=== PATIENT | female | born 1955 | race Caucasian/White ===

== ENCOUNTER 2017-01-31 19:58 | Emergency (ER) | payer OTHER ==
[2017-01-31] MEDS ORDERED: HYDROcodone/Acetaminophen 10/325 mg Tablet ONE (21:37)
--- NOTE | 2017-01-31 23:03 | RAD ---
LEFT ELBOW: History: Fall with elbow pain. FINDINGS: There is soft tissue swelling in the region of the olecranon. There is no fracture or joint effusion . IMPRESSION: No evidence of fracture. POS: [facility]
--- NOTE | 2017-01-31 23:07 | RAD ---
LEFT KNEE FOUR VIEWS: History: Fall with knee pain. FINDINGS: Bones are demineralized. There are some arthritic changes of the knee with medial compartment narrow ing. There are no signs of fracture, dislocation, or joint effusion. IMPRESSION: No evidence of fracture. POS: [facility]
--- NOTE | 2017-01-31 23:10 | RAD ---
PORTABLE CHEST: History: Fall with left sided pain. FINDINGS: Heart size is borderline. There are post op sternotomy change. There is elevation of the right hemid iaphragm. The lungs are clear of infiltrates. No rib fractures identified. IMPRESSION: Borderline heart size. POS: [facility]
--- NOTE | 2017-01-31 23:15 | RAD ---
RIGHT HAND THREE VIEWS: History: Fall with hand pain. FINDINGS: The bones appear demineralized. There are arthritic changes of the hand. The trapezium is absent, pr esumably surgically removed. There is no signs of any acute trauma. IMPRESSION: No evidence of fracture. POS: [facility]
--- NOTE | 2017-01-31 23:16 | RAD ---
RIGHT WRIST THREE VIEWS: History: Fall while walking. FINDINGS: The trapezium is absent, presumably post-operative. I do not see any signs of fracture or dislocatio n. The bones are demineralized. If trauma is suspected to the navicular, a follow up is recommended to exclude occult fracture. IMPRESSION: No evidence of fracture. POS: [facility]
[2017-01-31] MEDS ORDERED: Morphine 10 MG/ML VIAL ONE (23:34)
== END 2017-01-31 23:49 | disposition home or self-care (01) ==
LOC: ERS 19:58
DX: S50.02XA Contusion of left elbow, initial encounter (principal); S63.501A Unspecified sprain of right wrist, initial encounter; I25.10 Atherosclerotic heart disease of native coronary artery without angina pectoris; F41.9 Anxiety disorder, unspecified; F32.9 Major depressive disorder, single episode, unspecified; Z86.711 Personal history of pulmonary embolism; W17.89XA Other fall from one level to another, initial encounter; Y93.02 Activity, running
CPT/HCPCS: 71010; 96372; J2270

== ENCOUNTER 2017-04-22 08:27 | Outpatient (CLI) | payer OTHER ==
--- NOTE | 2017-04-22 10:33 | CT ---
CERVICAL SPINE CT WITHOUT CONTRAST: DATE: 04/22/17. COMPARISON: 10/01/16. HISTORY: Possible nerve impingement, cervical radiculopathy. TECHNIQUE: Serial axial CT imaging at 2 mm intervals obtained from the skull base through the upper thoracic spi ne without contrast. Coronal and sagittal reformatted imaging obtained. FINDINGS: Imaged lung apices are unremarkable. Partially visualized midline sternotomy wires noted. The C1 ring is intact. There is mild degenerative change at the atlantoaxial interspace. The cranio cervical junction, occipital condyles, dens, and C1-2 articulation appear grossly unremarkable. The cervicothoracic junction appears within normal limits. Evaluation for central anal and/or neural foraminal stenosis is limited on routine CT. There is ante rior diskectomy and fusion hardware at C6-7, similar when compared to the prior examination. C2-3: No osseous cause of significant central canal or neural foraminal stenosis. C3-4: Mild left-sided uncovertebral osteophyte formation with probable mild left neural foraminal st enosis. No osseous cause of significant central canal or right neural foraminal stenosis. C4-5: No osseous cause of significant central canal or neural foraminal stenosis. C5-6: There is moderate uncovertebral osteophyte formation on the left with a moderate degree of lef t neural foraminal stenosis. There is mild right neural foraminal stenosis with probable mild right neural foraminal stenosis. No osseous cause of significant central canal stenosis. C6-7: There is no osseous cause of significant central canal or neural foraminal stenosis. C7-T1: No osseous cause of significant central canal or neural foraminal stenosis. Soft tissue windows suggest a central disk herniation abutting the ventral aspect of the cervical cor d at C3-4, slightly more conspicuous than on the prior exam. No acute osseous abnormality. No worri some lytic or blastic bone lesion. IMPRESSION: Degenerative change within the cervical spine as detailed above. More detailed assessment for centra l canal and/or neural foraminal stenosis could be performed via MRI or cervical spine CT myelogram as clinically warranted. POS: [facility]
== END 2017-04-22 08:28 | disposition home or self-care (01) ==
LOC: TBSIIMAG 08:27
PROVIDERS: ATTEND Neurological Surgery
DX: M47.22 Other spondylosis with radiculopathy, cervical region (principal)
CPT/HCPCS: 72125

== ENCOUNTER 2017-09-08 17:57 | Emergency (ER) | payer OTHER, SELFPAY ==
[~2017-09-08 17:57] MED LIST: ISOVUE-370 76%-LOCM 1 ML ONE
[2017-09-08 19:34] LABS: #Basophils 0.1 thou/uL (0.0-0.2); #Eosinphils 0.2 thou/uL (0.0-0.7); #Lymphocytes 1.5 thou/uL (1.20-3.40); #Monocytes 0.4 thou/uL (0.11-0.59); #Neutrophils 3.5 thou/uL (1.40-6.50); %Basophils 0.9 % (0.0-1.0); %Eosinophils 3.5 % (0.0-10.0); %Neutrophils 62.6 % (42.0-75.0); Mean Corpuscular HGB CONC 34.9 g/dL (32.0-36.0); Mean Corpuscular Hemoglobin 32.2 pg (27.0-31.0); Mean Corpuscular Volume 92.2 fl (81.0-99.0); Mean Platelet Volume 6.2 fL (7.4-10.4); Platelet Count 180 thou/uL (130-400); RBC Distribution Width 12.2 % (11.5-14.5); Red Blood Cell (RBC) Count 4.03 mill/uL (4.20-5.40); White Blood Cell (WBC) Count 5.6 thou/uL (4.8-10.8)
[2017-09-08 19:59] LABS: ALT (SGPT) 31 U/L (8-55); AST (SGOT) 25 U/L (5-34); Albumin 4.2 g/dL (3.5-5.0); Alkaline Phosphatase 105 U/L (40-150); Anion Gap 9 mmol/L (10-20); BUN (Urea Nitrogen) 17 mg/dL (9.8-20.1); Bilirubin, Total 0.5 mg/dL (0.2-1.2); Calc. Creatinine Clearance 0 mL/min (70-130); Calcium 9.3 mg/dL (7.8-10.44); Carbon Dioxide 24 mmol/L (22-29); Chloride 107 mmol/L (98-107); Estimated GFR-MDRD 52; Globulin 2.7 g/dL (2.4-3.5); Glucose 96 mg/dL (70-105); Lipase 5 U/L (8-78); Potassium 3.7 mmol/L (3.5-5.1); Protein, Total 6.9 g/dL (6.0-8.3); Sodium 136 mmol/L (136-145)
[2017-09-08 20:30] LABS: INR-International Normal Ratio 1.2; PTT 29.5 SEC (22.9-36.1); Prothrombin Time 15.5 SEC (12.0-14.7)
--- NOTE | 2017-09-08 20:34 | CT ---
CT OF THE BRAIN WITHOUT CONTRAST 09/08/17 COMPARISON: 09/22/16. HISTORY: Tripped while walking dog and fell on the concrete and struck the head. Head trauma and headache. TECHNIQUE: Multiple contiguous axial images were obtained in a CT of the brain without contrast. FINDINGS: There are a few subtle scattered hypodensities in the subcortical and periventricular white matter l ikely secondary to small vessel ischemic disease. No large confluent infarction is seen. There is no evidence of hydrocephalus, intracranial hemorrhage or extra-axial fluid collection. The calvarium and overlying soft tissues are unremarkable. The visualized paranasal sinuses and masto id air cells are well aerated. IMPRESSION: No evidence of acute intracranial abnormality. POS: [facility]
--- NOTE | 2017-09-08 20:38 | CT ---
CT OF THE CERVICAL SPINE WITHOUT CONTRAST 09/08/17 COMPARISON: None. HISTORY: Tripped and fell walking dog and hit head. Patient complains of neck pain and pain all over. TECHNIQUE: Multiple contiguous axial images were obtained in a CT of the cervical spine without contrast. Sagitt al and coronal reformats were performed. FINDINGS: The patient is status post anterior fusion of C6 and C7 with anterior plate and screws. The vertebral bodies demonstrate normal height and alignment without acute fracture or subluxation. No prevertebra l soft tissue swelling is seen. The posterior facets are well aligned. Normal alignment of the skull base with the cervical spine is seen. IMPRESSION: Unremarkable exam. POS: [facility]
--- NOTE | 2017-09-08 21:03 | CT ---
CT OF THE CHEST WITH CONTRAST CT OF THE ABDOMEN AND PELVIS WITH CONTRAST LIMITED CT OF THE THORACIC AND LUMBOSACRAL SPINE WITH CONTRAST 09/08/17 HISTORY: Patient tripped and fell while walking dog and hit head. Patient complaints of pain all over includin g the chest and abdomen as well as the back. TECHNIQUE: 1. Multiple contiguous axial images were obtained in a CT of the chest with contrast. Coronal re formats were performed. 2. Multiple contiguous axial images were obtained in a CT of the abdomen and pelvis with contras t. Coronal reformats were performed. 3. Limited CTs of the thoracic and lumbosacral spines were performed. Sagittal and coronal refor mats were created based on images obtained in the chest, abdomen, and pelvic CTs. FINDINGS: CT CHEST: The heart is normal in size without focal cardiac abnormality. No hilar or mediastinal lymphadenopath y are seen. The patient is status post CABG. No pneumothorax or pleural effusions are seen. No focal infiltrates or suspicious pulmonary nodules a re seen. The chest wall soft tissues and bones of the thorax are unremarkable. CT ABDOMEN/PELVIS: The liver, gallbladder, kidneys, adrenal glands, spleen, and pancreas are unremarkable. An inferior v yo cava filter is seen. No free air, free fluid, or stranding changes are seen in the abdomen or pel vis. The large and small bowel are unremarkable. No abdominal or pelvic lymphadenopathy are seen. The jarek ent is status post hysterectomy. The abdominal wall soft tissues and bones of the pelvis are unremarkable. Limited CT of the thoracic and lumbosacral spine. Mild degenerative changes are seen throughout the spine. The vertebral bodies demonstrate normal height and alignment without acute fracture or subluxation. IMPRESSION: 1. No evidence of acute intrathoracic abnormality. 2. No evidence of acute intra-abdominal/pelvic abnormality. 3. No evidence of acute osseous abnormality of the thoracic or lumbosacral spine. POS: [facility]
[2017-09-08] MEDS ORDERED: Acetaminophen 500 MG TAB ONE (21:15)
== END 2017-09-08 21:51 | disposition home or self-care (01) ==
LOC: ERS 17:57
DX: S09.90XA Unspecified injury of head, initial encounter (principal); I25.10 Atherosclerotic heart disease of native coronary artery without angina pectoris; F41.9 Anxiety disorder, unspecified; F32.9 Major depressive disorder, single episode, unspecified; Z79.899 Other long term (current) drug therapy; Z79.82 Long term (current) use of aspirin; W01.0XXA Fall on same level from slipping, tripping and stumbling without subsequent striking against object, initial encounter
CPT/HCPCS: 36415; 70450; 71260; 72125; 74177; 80053; 83690; 85025; 85610; 85730; 86850; 86870; 86900; 86901; 86922

== ENCOUNTER 2017-09-23 15:11 | Emergency (ER) | payer OTHER ==
--- NOTE | 2017-09-23 15:58 | CT ---
CT HEAD NONCONTRAST DATE: 09/23/17 HISTORY: Altered mental status. Slurred speech. COMPARISON: 09/08/17. FINDINGS: There is no evidence of acute intracranial hemorrhage or infarct. The ventricles appear normal in siz e, shape, and position. Mild chronic ischemic small vessel disease and diffuse cortical atrophy are a gain demonstrated. IMPRESSION: Chronic-type findings are stable. No acute intracranial abnormalities are demonstrated on noncontrast CT head. Findings called to Dr. Urrutia in the emergency department at 1521 hours. CODE CR. POS: [facility]
[2017-09-23 16:20] LABS: #Eosinphils 0.2 thou/uL (0.0-0.7); #Lymphocytes 1.2 thou/uL (1.20-3.40); #Monocytes 0.4 thou/uL (0.11-0.59); #Neutrophils 2.8 thou/uL (1.40-6.50); %Basophils 0.6 % (0.0-1.0); %Eosinophils 3.9 % (0.0-10.0); %Lymphocytes 25.6 % (21.0-51.0); %Monocytes 8.1 % (0.0-10.0); %Neutrophils 61.8 % (42.0-75.0); Hemoglobin 13.6 g/dL (12.0-16.0); Mean Corpuscular Hemoglobin 31.8 pg (27.0-31.0); Mean Corpuscular Volume 96.2 fl (81.0-99.0); Mean Platelet Volume 6.7 fL (7.4-10.4); Platelet Count 184 thou/uL (130-400); RBC Distribution Width 12.6 % (11.5-14.5); Red Blood Cell (RBC) Count 4.28 mill/uL (4.20-5.40); White Blood Cell (WBC) Count 4.6 thou/uL (4.8-10.8)
[2017-09-23 16:28] LABS: INR-International Normal Ratio 1.2; PTT 29.7 SEC (22.9-36.1); Prothrombin Time 15.4 SEC (12.0-14.7)
[2017-09-23 16:44] LABS: ALT (SGPT) 21 U/L (8-55); AST (SGOT) 23 U/L (5-34); Albumin 4.2 g/dL (3.4-4.8); Alkaline Phosphatase 101 U/L (40-150); Anion Gap 12 mmol/L (10-20); BUN (Urea Nitrogen) 11 mg/dL (9.8-20.1); Bilirubin, Total 0.5 mg/dL (0.2-1.2); CK (CPK) 118 U/L (29-168); Calc. Creatinine Clearance 0 mL/min (70-130); Calcium 9.6 mg/dL (7.8-10.44); Carbon Dioxide 25 mmol/L (23-31); Chloride 108 mmol/L (98-107); Estimated GFR-MDRD 56; Globulin 2.8 g/dL (2.4-3.5); Glucose 94 mg/dL (80-115); Potassium 4.5 mmol/L (3.5-5.1); Sodium 140 mmol/L (136-145)
[2017-09-23 16:48] LABS: CKMB 1.6 ng/mL (0-6.6); Troponin I Less than 0.010 ng/mL (< 0.028)
== END 2017-09-23 21:12 | disposition left against medical advice (07) ==
LOC: ERS 15:11
DX: G45.9 Transient cerebral ischemic attack, unspecified (principal); F32.9 Major depressive disorder, single episode, unspecified; F41.9 Anxiety disorder, unspecified; Z79.899 Other long term (current) drug therapy
CPT/HCPCS: 36416; 70450; 80053; 82550; 82553; 84484; 85025; 85610; 85730; 93005; 94760

== ENCOUNTER 2017-12-11 02:20 | Emergency (ER) | payer MEDICARE, OTHER | END 2017-12-11 04:30 | disposition home or self-care (01) | LOC: SCSER 02:20 | DX: R20.0 Anesthesia of skin (principal); E86.0 Dehydration; T42.4X5A Adverse effect of benzodiazepines, initial encounter; I25.10 Atherosclerotic heart disease of native coronary artery without angina pectoris; F41.9 Anxiety disorder, unspecified; F32.9 Major depressive disorder, single episode, unspecified; Z86.718 Personal history of other venous thrombosis and embolism; Z79.891 Long term (current) use of opiate analgesic; Z79.899 Other long term (current) drug therapy; Z79.01 Long term (current) use of anticoagulants | CPT/HCPCS: 94760; 96360 ==

== ENCOUNTER 2018-04-02 19:00 | Emergency (ER) | payer OTHER ==
--- NOTE | 2018-04-02 21:03 | ULT ---
LEFT LOWER EXTREMITY VENOUS DUPLEX EXAM: 04/02/18 HISTORY: Left pain and swelling. Real time color doppler evaluation of left lower extremity was performed from groin to calf. This inc ludes evaluation of common femoral, superficial, and profunda femoral, saphenous, popliteal, and post erior tibial veins. This shows a patent deep venous system with normal compressibility and augmentati on. Incidental note is made of a knee joint effusion. IMPRESSION: 1. No evidence of DVT. 2. Joint effusion of the knee incidentally seen. POS: [facility]
--- NOTE | 2018-04-02 21:04 | RAD ---
LEFT KNEE FOUR VIEWS: 04/02/18 HISTORY: Knee pain. There are arthritic changes of the knee. There is fairly pronounced medial compartment narrowing. Sug gestion of a small joint effusion. No fracture is seen. The bones are demineralized. IMPRESSION: 1. Arthritic changes of the knee mainly related to medial compartment narrowing. 2. Small joint effusion. POS: [facility]
== END 2018-04-02 21:38 | disposition home or self-care (01) ==
LOC: ERS 19:00
DX: M17.12 Unilateral primary osteoarthritis, left knee (principal); I25.10 Atherosclerotic heart disease of native coronary artery without angina pectoris; F41.9 Anxiety disorder, unspecified; F32.9 Major depressive disorder, single episode, unspecified; J45.909 Unspecified asthma, uncomplicated; Z86.718 Personal history of other venous thrombosis and embolism; Z79.899 Other long term (current) drug therapy; Z86.711 Personal history of pulmonary embolism; Z79.01 Long term (current) use of anticoagulants

== ENCOUNTER 2019-03-21 16:03 | Outpatient (CLI) | payer OTHER ==
--- NOTE | 2019-03-21 17:06 | MRI ---
Cervical spine MRI without contrast: 03/21/2019 COMPARISON: 05/02/2015 HISTORY: Neck pain, worsened over the past month, history of cervical spine fusion TECHNIQUE: Multiplanar multisequence MR imaging of the cervical spine obtained without contrast FINDINGS: Anterior discectomy and fusion hardware at C6-7 noted. The sagittal STIR imaging demonstrat es no focal area of osseous marrow edema. C2-3: Minimal disc bulge with no central canal or neural foraminal stenosis. C3-4: There is a small central disc herniation and associated annular tear partially obscuring the ve ntral thecal sac and abutting the ventral aspect of the cord with a mild degree of central canal stenosis. There is no significant right neural foraminal stenosis. There is moderate left neural fora mac stenosis on the basis of facet and uncovertebral osteophyte formation. C4-5: There is disc space narrowing and disc desiccation with mild disc bulge. No significant central canal or neural foraminal stenosis. Mild bilateral facet hypertrophy. C5-6: There is disc space narrowing and disc desiccation with mild disc bulge partially effacing the ventral thecal sac and causing a mild degree of central canal stenosis. Bilateral facet and uncovertebral osteophyte formation noted, left greater than right, with moderate right and severe left neural foraminal stenosis. C6-7: Disc desiccation and mild disc space narrowing with no central canal or neural foraminal stenos is. C7-T1: No significant central canal or neural foraminal stenosis. There is no focal area of abnormal signal intensity identified within the cervical cord. IMPRESSION: Postoperative and degenerative changes within the cervical spine as detailed above. Transcribed Date/Time: 03/21/2019 5:44 PM
== END 2019-03-21 16:04 | disposition home or self-care (01) ==
LOC: SCSMRI 16:03
PROVIDERS: ATTEND Internal Medicine
DX: M54.2 Cervicalgia (principal); M47.812 Spondylosis without myelopathy or radiculopathy, cervical region; Z98.890 Other specified postprocedural states
CPT/HCPCS: 72141

== ENCOUNTER 2022-10-07 14:30 | Inpatient (IN) | payer OTHER ==
[2022-10-07 14:53] VITALS: BMI 28.7
[2022-10-09] MEDS ORDERED: Thrombin 5000 UNITS/5 ML VIAL ONE (06:22)
[2022-10-09] MEDS ORDERED: fentaNYL 50 mcg/mL 1 mL Vial ONE ×5 (06:32→09:57)
[2022-10-09] MEDS ORDERED: HYDROmorphone 0.5 MG/0.5 ML SYRINGE ONE ×3 (06:32→10:03)
[2022-10-09] MEDS ORDERED: CEFAZOLIN 2 GM VIAL ONE ×2 (06:49→12:36)
[2022-10-09] MEDS ORDERED: Sodium Chloride 0.9% 100 ML ONE ×2 (06:49→12:36)
[2022-10-09] MEDS ORDERED: PHENYLEPHRINE-NS 100 MCG/ML 10 ML SYRINGE ONE (07:04)
[2022-10-09] MEDS ORDERED: ePHEDrine Sulfate 50 MG/10 ML VIAL ONE (07:04)
[2022-10-09] MEDS ORDERED: PROPOFOL 200 MG/20 ML VIAL ONE (07:04)
[2022-10-09] MEDS ORDERED: Rocuronium Bromide 10 MG/ML (10ML VIAL) ONE (07:04)
[2022-10-09] MEDS ORDERED: Ondansetron PF 4 MG/2 ML Vial ONE (07:04)
[2022-10-09] MEDS ORDERED: Dexamethasone 20 MG/5 ML VIAL ONE (07:04)
[2022-10-09] MEDS ORDERED: Lidocaine 1% PF 5 ML VIAL ONE (07:04)
[2022-10-09] MEDS ORDERED: SUGAMMADEX SODIUM 200 MG/2 ML VIAL ONE (08:19)
[2022-10-09] MEDS ORDERED: Phenylephrine 10 MG/ML VIAL ONE (08:23)
[2022-10-09] MEDS ORDERED: Methocarbamol 500 MG TAB PO PRN (11:53)
[2022-10-09] MEDS ORDERED: HYDROcodone/Acetaminophen 5/325 mg Tablet ONE (12:17)
== END 2022-10-09 13:30 | disposition home or self-care (01) | DRG 30 ==
LOC: SURG A 10-09 05:41
PROVIDERS: ADMIT Neurological Surgery; ATTEND Neurological Surgery
PROC: 0RG10A0 Fusion of Cervical Vertebral Joint with Interbody Fusion Device, Anterior Approach, Anterior Column, Open Approach (ICD-10-PCS; principal; 2022-10-09)
PROC: 0RB30ZZ Excision of Cervical Vertebral Disc, Open Approach (ICD-10-PCS; 2022-10-09)
DX: M54.12 Radiculopathy, cervical region (principal); G89.29 Other chronic pain; F32.A Depression, unspecified; M81.0 Age-related osteoporosis without current pathological fracture; G43.909 Migraine, unspecified, not intractable, without status migrainosus; F41.9 Anxiety disorder, unspecified; Z96.651 Presence of right artificial knee joint; M19.90 Unspecified osteoarthritis, unspecified site; J45.909 Unspecified asthma, uncomplicated; Z98.890 Other specified postprocedural states
CPT/HCPCS: 80048; 85025; C1713; C1889; J1100; J1170; J2370; J2405; J2704; J3010; J3490